=== PATIENT | male | born 1965 | race Caucasian/White ===

== ENCOUNTER 2021-12-26 21:04 | Emergency (ER) | payer SELFPAY ==
[~2021-12-26] VITALS: Ht 180.3 cm; Wt 68.0 kg
[2021-12-26 21:18] VITALS: BP 126/76
== END 2021-12-26 22:51 | disposition home or self-care (01) ==
LOC: ER 21:05
DX: S00.83XA Contusion of other part of head, initial encounter (principal); Z88.0 Allergy status to penicillin; W19.XXXA Unspecified fall, initial encounter; Y93.89 Activity, other specified; Y92.89 Other specified places as the place of occurrence of the external cause; Y99.8 Other external cause status
CPT/HCPCS: 12011; 70450; 70486; 99284; A6449

== ENCOUNTER 2023-08-29 13:36 | Emergency (ER) | payer MEDICARE, BC ==
[~2023-08-29] VITALS: Ht 180.3 cm; Wt 69.4 kg
[2023-08-29 14:33] VITALS: PULSE 70; RESP 16; O2SAT 99
[2023-08-29] MEDS: ipratropium/albuterol 3ml nebule NEB ONE (14:33)
[2023-08-29] MEDS ORDERED: PRED20TA PO (14:42)
[2023-08-29] MEDS ORDERED: CYCL-1 PO (14:42)
[2023-08-29] MEDS ORDERED: OXYC-145 PO (14:42)
[2023-08-29 14:45] VITALS: PULSE 65; RESP 16; O2SAT 99
[2023-08-29] MEDS: predniSONE 20 mg tablet PO ONE (14:57)
[2023-08-29] MEDS: morphine 2 MG/ML inj. syringe IM ONE (14:57)
[2023-08-29 15:20] VITALS: BP 134/82; PULSE 69; RESP 16; TEMP 97.7; O2SAT 97
== END 2023-08-29 15:21 | disposition home or self-care (01) ==
LOC: ER 13:37
DX: R07.81 Pleurodynia (principal); Z88.0 Allergy status to penicillin
CPT/HCPCS: 71045; 94640; 99284; J7512; 94760

== ENCOUNTER 2023-11-02 13:17 | Emergency (ER) | payer BC, MEDICARE ==
[~2023-11-02] VITALS: Ht 180.3 cm; Wt 70.0 kg
[~2023-11-02 13:17] MED LIST: CYCL-1 PO; OXYC-145 PO
[2023-11-02] MEDS ORDERED: DOXY-1 PO (14:37)
[2023-11-02] MEDS ORDERED: VALA100031 PO (14:37)
[2023-11-02 14:42] VITALS: BP 128/78; PULSE 78; RESP 18; TEMP 98.1; O2SAT 98
== END 2023-11-02 14:43 | disposition home or self-care (01) ==
LOC: ER 13:18
DX: L03.011 Cellulitis of right finger (principal); Z88.0 Allergy status to penicillin; Z79.899 Other long term (current) drug therapy
CPT/HCPCS: 99283